=== PATIENT | female | born 1980 | race Two or more races ===

== ENCOUNTER → 2025-01-21 | Outpatient (CLI) | payer MEDICAID, SELFPAY ==
--- NOTE | 2025-01-21 14:30 | XR_ITS ---
Examination: Abdomen sonogram, Limited Date and time of exam: January 21, 2025 1507 hours INDICATIONS: Onset right upper abdominal pain beginning 5 months ago Technique: Real-time martínez scale transabdominal sonographic images of the upper abdomen obtained. Findings: Normal gallbladder Normal common bile duct 0.3 cm Pancreatic head 2.8 cm Liver 18.8 cm fatty infiltration no focal liver lesions Normal hepatopedal portal venous flow Patent IVC IMPRESSION: Moderate hepatomegaly, fatty liver
== END | disposition home or self-care (01) ==
PROVIDERS: PCP Internal Medicine Gastroenterology; Referring Provider Internal Medicine Gastroenterology; Visit Provider Internal Medicine Gastroenterology
DX: K76.0 Fatty (change of) liver, not elsewhere classified (principal)
CPT/HCPCS: 76705